=== PATIENT | female | born 1985 | race Hispanic/Latino ===

== ENCOUNTER → 2019-06-24 19:46 | Outpatient (CLI) | payer OTHER, SELFPAY | LOC: LAB 19:47 | PROVIDERS: PCP Family Medicine; Visit Provider Physician Assistant | DX: J02.9 Acute pharyngitis, unspecified (principal) | CPT/HCPCS: 87070; 87077 ==

== ENCOUNTER → 2023-12-07 11:53 | Outpatient (CLI) | payer OTHER, SELFPAY ==
--- NOTE | 2023-12-07 11:55 | DI.RAD.S_ITS ---
PROCEDURE: XR RIBS RT MIN 3V W CXR 1V INDICATIONS: Right rib pain TECHNIQUE: 2 views of the ribs were acquired, along with a single view chest. COMPARISON: None. FINDINGS: Surgical changes and devices: None. Bones and chest wall: No fractures or dislocations. No suspicious bony lesions. Overlying soft tissues appear unremarkable. Lungs and pleura: No pleural effusions or pneumothorax. Lungs appear clear. Mediastinum: Mediastinal contours appear normal. Heart size is normal. IMPRESSION: No displaced rib fracture or pneumothorax. Dictated by: Javon Sorto M.D. on 12/07/2023 at 12:58 Approved by: Javon Sorto M.D. on 12/07/2023 at 12:58
== END ==
PROVIDERS: PCP Family Medicine; Referring Provider Nurse Practitioner Family; Visit Provider Nurse Practitioner Family
DX: R07.81 Pleurodynia (principal)
CPT/HCPCS: 71101

== ENCOUNTER → 2024-04-26 14:30 | Outpatient (CLI) | payer OTHER, SELFPAY ==
--- NOTE | 2024-04-26 14:31 | DI.RAD.S_ITS ---
PROCEDURE: XR ANKLE RT 2V INDICATIONS: right ankle injury TECHNIQUE: 3 views of the ankle were acquired. COMPARISON: None. FINDINGS: Bones: No fractures or dislocations. Ankle mortise is normally aligned. No suspicious bony lesions. Soft tissues: Mild lateral malleolar edema. Achilles tendon appears normal. IMPRESSION: No visualized acute fracture or dislocation. However, if clinical concern and/or pain persist, short interval imaging followup in 7-10 days is recommended, as occult injury cannot be definitively excluded. Dictated by: Anh Millan M.D. on 04/26/2024 at 16:16 Approved by: Anh Millan M.D. on 04/26/2024 at 16:17
== END ==
PROVIDERS: PCP Family Medicine; Referring Provider Student in an Organized Health Care Education/Training Program; Visit Provider Student in an Organized Health Care Education/Training Program
DX: M25.571 Pain in right ankle and joints of right foot (principal); M25.471 Effusion, right ankle
CPT/HCPCS: 73600

== ENCOUNTER → 2025-06-27 11:59 | Outpatient (CLI) | payer OTHER, SELFPAY ==
[2025-06-27 13:23] LABS: Appearance Urine UA CLEAR; Bilirubin Urine UA NEGATIVE (NEGATIVE); Color Urine UA YELLOW; Glucose Urine UA NEGATIVE (Negative); Ketones Urine UA NEGATIVE (NEGATIVE); Leukocyte Esterase Urine UA 1+ (NEGATIVE); Nitrite Urine UA POSITIVE (Negative); Occult Blood Urine UA NEGATIVE (Negative); Protein Urine UA NEGATIVE (Negative); Specific Gravity Urine UA 1.010 (1.000-1.035); Urobilinogen Urine UA 0.2 E.U./dL (0.2)
[2025-06-27 13:31] LABS: pH Urine UA 6.5 (4.5-8.0)
[2025-06-27 13:39] LABS: Culture Indicated Urine Specimen Cultured
== END ==
PROVIDERS: PCP Family Medicine; Referring Provider Obstetrics & Gynecology; Visit Provider Obstetrics & Gynecology
DX: O26.899 Other specified pregnancy related conditions, unspecified trimester (principal); R30.0 Dysuria
CPT/HCPCS: 81001; 87077; 87086; 87186

== ENCOUNTER → 2025-07-08 14:05 | Outpatient (CLI) | payer OTHER, SELFPAY ==
[2025-07-08 16:18] LABS: Hematocrit 29.8 % (36-46); Hemoglobin 10.6 g/dL (12.0-16.0)
[2025-07-08 16:44] LABS: GTT (PREG) 1 Hour PP 50gm Dose 133 mg/dL (76-139)
== END ==
PROVIDERS: PCP Family Medicine; Referring Provider Obstetrics & Gynecology; Visit Provider Obstetrics & Gynecology
DX: Z34.82 Encounter for supervision of other normal pregnancy, second trimester (principal)
CPT/HCPCS: 36415; 82950; 85014; 85018; 86850

== ENCOUNTER → 2025-08-05 10:44 | Outpatient (CLI) | payer OTHER, SELFPAY ==
[2025-08-05 11:43] LABS: HEMOLYSIS < 15 (0-50); Iron 120 ug/dL (37-170)
[2025-08-05 11:54] LABS: Percent Iron Saturation 29 % (15-50); Total Iron Binding Capacity 420 ug/dL (265-497); Transferrin 366 mg/dL (206-381)
[2025-08-05 12:20] LABS: Ferritin 64 ng/mL (6-137)
== END ==
PROVIDERS: PCP Family Medicine; Referring Provider Obstetrics & Gynecology; Visit Provider Obstetrics & Gynecology
DX: O99.019 Anemia complicating pregnancy, unspecified trimester (principal)
CPT/HCPCS: 36415; 82728; 83540; 83550

== ENCOUNTER → 2025-09-20 08:05 | Outpatient (CLI) | payer OTHER, SELFPAY ==
--- NOTE | 2025-09-20 08:06 | DI.US.S_ITS ---
PROCEDURE: US OB LIMITED INDICATIONS: Check growth OUTSIDE/PRIOR DATING DATA: Working JORDAN: 10/18/2025 TECHNIQUE: Real-time scanning was performed of the fetus, with image documentation and biometric measurements. Endovaginal scanning: Not performed COMPARISON: [facility], OB LIMITED, 05/19/2025, 19:55. FINDINGS: General: A single living intrauterine gestation is present. Presentation: Vertex. Placenta: Placental position is anterior, without previa. Amniotic fluid index: 13 point cm, normal range is 5-24 cm. Single deepest vertical pocket is 3 point cm. heart rate: 119 beats per minute. Maternal cervical canal: 3.6 cm long. Normal lower limit is 2.5 cm. biometrics: Biparietal diameter: 8.5 centimeters, 34 weeks 1 day Head circumference: 31.3 centimeters, 35 weeks 1 day Abdominal circumference: 31.3 centimeters, 35 weeks 2 days Femur length: 7.2 centimeters, 37 weeks 0 days Clinically estimated gestational age: 36 weeks 0 days Composite gestational age from present scan: 35 weeks 3 days Estimated weight and percentile: 2710 grams, 39 percentile Other: Not applicable. IMPRESSION: Single living intrauterine at 36 weeks 0 days, JORDAN of 10/18/2025. Estimated weight of 2710 grams, 39 percentile . We strive to produce accurate, complete, and clear reports of imaging services. To assist us in improving patient care, this report was composed using standard report templates and voice recognition software. Therefore, it may contain abnormal punctuation, insertions and/or omissions. Occasional wrong-word or sound-alike substitutions may occur. Though we review the report and make efforts to correct it, we do recommend that the report be read carefully in proper context to recognize any text inaccuracies. Dictated by: Shreyas Howe M.D. on 09/20/2025 at 12:15 Approved by: Shreyas Howe M.D. on 09/20/2025 at 12:16
== END ==
LOC: US 08:05
PROVIDERS: PCP Family Medicine; Referring Provider Family Medicine; Visit Provider Obstetrics & Gynecology
DX: O34.219 Maternal care for unspecified type scar from previous cesarean delivery (principal); Z36.89 Encounter for other specified antenatal screening; Z3A.36 36 weeks gestation of pregnancy
CPT/HCPCS: 76815; 87653

== ENCOUNTER → 2025-09-20 09:10 | Outpatient (CLI) | payer OTHER, SELFPAY ==
[2025-09-21 10:58] LABS: Strep Grp B PCR NEG for Grp B Strep
== END ==
PROVIDERS: PCP Family Medicine; Referring Provider Obstetrics & Gynecology; Visit Provider Obstetrics & Gynecology
DX: Z34.80 Encounter for supervision of other normal pregnancy, unspecified trimester (principal); Z3A.36 36 weeks gestation of pregnancy
CPT/HCPCS: 87653